=== PATIENT | female | born 1960 | race African-American/Black ===

== ENCOUNTER 2024-08-01 06:28 | Day surgery (SDC) | payer MEDICAID ==
[~2024-08-01] VITALS: Ht 154.9 cm; Wt 88.9 kg
[2024-08-01] MEDS ORDERED: VERAPAMIL 2.5MG/ML INJ 2ML VIAL IV ONE (07:43)
[2024-08-01] MEDS ORDERED: MIDAZOLAM HCL 2MG/2ML 2ml VIAL (1mg/ml) ONE (07:44)
[2024-08-01] MEDS ORDERED: fentaNYL CITRATE 100 MCG/2 ML VL ONE (07:44)
[2024-08-01] MEDS ORDERED: LIDOCAINE 2%HCL (LOCAL ANESTH.) INJ 20ML MDV ONE (07:44)
[2024-08-01] MEDS ORDERED: HEPARIN IN NS 1000Units/500mL 1,500 ML ONE (07:44)
--- NOTE | 2024-08-01 07:51 | DVH ---
CHEST RADIOGRAPH Indication: cardiac cath tech procedure Technique: Single frontal view of the chest was obtained COMPARISON: None FINDINGS: Lines and Tubes: None Lungs: Clear Pleura: No effusion. No pneumothorax. Cardiomediastinal contours: Unremarkable Bones: Unremarkable IMPRESSION: No acute disease.
[2024-08-01] MEDS ORDERED: SODIUM CHL 0.9% 0 ML ONE (07:53)
[2024-08-01] MEDS ORDERED: ANGIOMAX 250 MG VIAL IV ONE (07:53)
[2024-08-01] MEDS ORDERED: IODIXANOL 320MG/ML 100ML BTL IV ONE (07:54)
[2024-08-01] MEDS ORDERED: HEPARIN SODIUM (PORCINE) 5000 UNITS/ML 1ML VIAL ONE (08:17)
--- NOTE | 2024-08-01 08:33 | DVHOP2 ---
Operative Report Procedures performed: Left heart catheterization and bilateral coronary angiogram Moderate sedation Diagnosis: Nonobstructive coronary artery disease (mild RCA disease) Normal EF (55%) with Normal LVEDP Cardiac suggestion for management: Optimized medical therapy Lifestyle and risk factor modifications Findings: Left main: Left main was coming off the left sinus of Valsalva. There was no angiographic evidence of disease in left main. LCx: LCx was coming off the left main. It provided a large obtuse marginal. LCX throughout its course and branches did not reveal any angiographic evidence of disease. Ramus intermedius: Ramus intermedius was coming off the left main. It was a large branching vessel with no angiographic evidence of disease. LAD: LAD was coming off the left main. It gave off a small diagonal. LAD throughout its course and branches did not reveal any angiographic evidence of disease. RCA: RCA was coming off the right sinus of Valsalva. It was the dominant vessel and provided RPDA. Mid RCA had mild disease. Other portions of RCA and branches did not reveal any angiographic evidence of disease. Presentation: Patient is a 64-year-old female who presented to the office with chest discomfort. Past medical history includes diabetes mellitus, hyperlipidemia, depression, COPD, daily use of alcohol and cigarette addiction. Echocardiogram of April 2024 revealed ejection fraction of 65-70%, mild MR/TR and right ventricular systolic pressure of less than 35 mm Hg. Nuclear stress test of May 07, 2024 was abnormal and the patient was sent for cardiac catheterization. Procedure: After obtaining informed consent, the patient was brought to the woven label designer. She was prepped and draped in sterile fashion. 1 mg of Versed and 50 mcg of fentanyl were used for moderate sedation. Right radial artery was used for access site. Using modified Seldinger technique, the right radial artery was accessed and a 6 [place] slender sheath was inserted into it. 2.5 mg of verapamil and 100 mcg of nitroglycerin were given as a cocktail into the right radial sheath. 4500 units of heparin was given peripherally. A 5 [place] tiger 4 diagnostic catheter was used to perform left heart catheterization (obtaining pressures and performing left ventriculography) and bilateral coronary angiography. There was no indication for any transcatheter revascularization. Total bleeding was less than 5 mL. There was no dissection/hematoma/perforation. Patient tolerated the procedure with no complication. Right radial artery access site was managed by deploying a TR band. Fluoroscopy time: 4 minutes contrast: 37 mL of DorieipaJONAS Holland MD Aug 01, 2024 08:33
[2024-08-01 08:35] VITALS: BP 127/95; PULSE 73; RESP 21; O2SAT 95
[2024-08-01 08:49] VITALS: BP 121/88; PULSE 73; RESP 17; O2SAT 96
[2024-08-01 09:05] VITALS: BP 118/97; PULSE 66; RESP 16; O2SAT 98
[2024-08-01] MEDS ORDERED: ASPI-498 OR (09:06)
[2024-08-01] MEDS ORDERED: GABA300T4 PO (09:06)
[2024-08-01] MEDS ORDERED: ATOR40TA52 PO (09:06)
[2024-08-01] MEDS ORDERED: CHOL20002 PO (09:06)
[2024-08-01] MEDS ORDERED: LISI-275 PO (09:06)
[2024-08-01] MEDS ORDERED: METF-370 PO (09:06)
[2024-08-01] MEDS ORDERED: FURO40TA4 PO (09:06)
[2024-08-01] MEDS ORDERED: FAMO-12 PO (09:06)
[2024-08-01] MEDS ORDERED: ALBU108A5 IN (09:18)
[2024-08-01 09:20] VITALS: BP 152/88; PULSE 63; RESP 17; O2SAT 96
[2024-08-01] MEDS ORDERED: ALBU0.084 IN (09:38)
[2024-08-01] MEDS ORDERED: FLUT0.05 NAS (09:43)
[2024-08-01] MEDS ORDERED: INSU1INJ19 SC (09:43)
[2024-08-01 09:49] VITALS: BP 158/89; PULSE 60; RESP 15; O2SAT 97
[2024-08-01] MEDS ORDERED: FLUT1AER3 IN (09:55)
[2024-08-01] MEDS ORDERED: INSU100I52 IJ (09:55)
[2024-08-01 10:19] VITALS: BP 131/85; PULSE 61; RESP 13; O2SAT 96
== END 2024-08-01 10:35 | disposition home or self-care (01) ==
LOC: CATH 06:28
PROVIDERS: ATTEND Internal Medicine Cardiovascular Disease
DX: I25.10 Atherosclerotic heart disease of native coronary artery without angina pectoris (principal); E11.9 Type 2 diabetes mellitus without complications; E78.5 Hyperlipidemia, unspecified; J44.9 Chronic obstructive pulmonary disease, unspecified; F32.A Depression, unspecified; Z79.899 Other long term (current) drug therapy; Z87.891 Personal history of nicotine dependence
CPT/HCPCS: 71045; 93458; C1894; J1644; J2250; J3010; Q9967; 99152